=== PATIENT | female | born 1970 | race Caucasian/White ===

== ENCOUNTER 2017-02-13 11:21 | Inpatient (IN) | payer OTHER ==
[~2017-02-13] VITALS: Ht 149.9 cm; Wt 80.2 kg
[~2017-02-13 11:21] MED LIST: DOCU-144 PO; FER325 PO; HYD25 PO; LISI20TA11 PO; METF500T4 PO; PANT40TA4 PO
[2017-02-13] MEDS ORDERED: SOD CHLORIDE 0.9% 1,000 ML IV STA (11:31)
[2017-02-13] MEDS ORDERED: FAMOTIDINE 20 MG INJ IV STA (11:31)
[2017-02-13] MEDS ORDERED: LOSA50TA6 PO (11:43)
[2017-02-13 12:08] LABS: ADD SCAN DIFF NO
[2017-02-13 12:12] LABS: ABNORMAL IP MESSAGE 1; HEMATOCRIT 24.9 % (37.0-47.0); MEAN CORPUSCULAR HEMOGLOBIN 15.8 pg (29.0-33.0); MEAN CORPUSCULAR HGB CONC 25.3 g/dl (32.0-37.0); MEAN CORPUSCULAR VOLUME 62.4 fl (82.0-101.0); PLATELET COUNT 228 10^3/UL (140-415); RED BLOOD COUNT 3.99 10^6/ul (4.20-5.40); RED CELL DISTRIBUTION WIDTH 20.7 % (11.5-14.5); WHITE BLOOD COUNT 6.5 10^3/ul (4.8-10.8)
[2017-02-13] MEDS ORDERED: SOD CHLORIDE 0.9% 250 ML IV ONE (12:27)
[2017-02-13 12:28] LABS: RETICULOCYTE COUNT % 2.6 % (0.5-1.5)
[2017-02-13 12:33] LABS: ALANINE AMINOTRANSFERASE 26 IU/L (13-69); ALBUMIN 4.9 g/dl (3.3-4.9); ALBUMIN/GLOBULIN RATIO 1.75; ALKALINE PHOSPHATASE 89 IU/L (42-121); ANION GAP 15 (8-16); ASPARTATE AMINO TRANSFERASE 21 IU/L (15-46); BILIRUBIN,INDIRECT 0.4 mg/dl (0-1.1); BILIRUBIN,TOTAL 0.4 mg/dl (0.2-1.3); BLOOD UREA NITROGEN 9 mg/dl (7-20); CALCIUM 9.1 mg/dl (8.4-10.2); CARBON DIOXIDE 21 mmol/L (21-31); CHLORIDE 108 mmol/L (97-110); CREATININE 0.65 mg/dl (0.44-1.00); GLUCOSE 108 mg/dl (70-220); SODIUM 140 mmol/L (135-144); TOTAL PROTEIN 7.7 g/dl (6.1-8.1)
[2017-02-13 12:34] LABS: IRON 18 ug/dl (35-150)
[2017-02-13 12:43] LABS: TOTAL IRON BINDING CAPACITY 521 ug/dl (241-421); TROPONIN-I < 0.012 ng/ml (0.00-0.12)
[2017-02-13 13:08] LABS: ANISOCYTOSIS 1+; BASOPHIL # 0.1 10^3/ul (0.0-0.1); EOSINOPHILS # 0.1 10^3/ul (0.0-0.5); HYPOCHROMASIA 3+; LYMPHOCYTES # 1.5 10^3/ul (0.8-2.9); MICROCYTOSIS 3+; MONOCYTE # 0.2 10^3/ul (0.3-0.9); NEUTROPHIL # 4.6 10^3/ul (1.6-7.5); POLYCHROMASIA 1+
--- NOTE | 2017-02-13 13:23 | ERA ---
ER Documentation Chief Complaint Date/Time DATE: 02/13/17 TIME: 13:13 Chief Complaint send for low hgb, feels tired HPI 46-year-old female comes emergency room because her doctor called with a low hemoglobin level. She has been increasingly tired with generalized weakness and not wanting to perform any physical activities lately. She has had chest pain on and off for the last couple of weeks. She does not currently have the chest pain. She has no dark stools vaginal bleeding materia or blood in her stool. She has not vomited. Reviewed the patient's EMR: She was transfused for anemia in 2013 without any apparent source found is discharge summary documented microcytic anemia with a low B12 level which which should produce a macrocytic anemia. ROS All systems reviewed and are negative except as per history of present illness. Medications Home Meds Reported Medications Losartan Potassium* (Losartan Potassium*) 50 Mg Tablet, 50 MG PO DAILY, TAB 02/13/17 Pantoprazole* (Pantoprazole*) 40 Mg Tablet.dr, 40 MG PO AC BREAKFAST, TAB 06/14/16 Metformin* (Glucophage*) 500 Mg Tab, 500 MG PO DAILY, #30 TAB 12/22/15 Discontinued Reported Medications Lisinopril* (Lisinopril*) 20 Mg Tablet, 20 MG PO DAILY, #30 TAB 06/14/16 Hydrochlorothiazide* (Hydrochlorothiazide*) 25 Mg Tab, 25 MG PO DAILY, #30 TAB 06/14/16 Discontinued Scripts Docusate Sodium* (Colace*) 100 Mg Cap, 100 MG PO BID, #60 Prov:DARVIN GARG PSYCHOLOGIST DEVELOPMENTAL 06/13/14 Ferrous Sulfate* (Ferrous Sulfate*) 325 Mg Tabec, 325 MG PO TID, #90 Prov:DARVIN GARG PSYCHOLOGIST DEVELOPMENTAL 06/13/14 Allergies Allergies: Coded Allergies: No Known Allergy (Unverified , 02/13/17) PMhx/Soc History of Surgery: No Anesthesia Reaction: No Hx Neurological Disorder: No Hx Respiratory Disorders: No Hx Cardiac Disorders: Yes (HTN) Hx Psychiatric Problems: No Hx Miscellaneous Medical Probl: Yes (DM, ANEMIA) Hx Alcohol Use: Yes (OCCASIONALLY) Hx Substance Use: No Hx Tobacco Use: Yes (OCCASIONALLY) Smoking Status: Current some day smoker Physical Exam Vitals Vital Signs Date Time Temp Pulse Resp B/P Pulse Ox O2 Delivery O2 Flow Rate FiO2 6/7/17 19:45 72 16 147/76 99 02/13/17 18:30 73 16 137/69 100 02/13/17 16:30 76 17 146/80 100 02/13/17 14:49 79 18 146/88 99 02/13/17 12:14 77 18 132/81 99 02/13/17 11:37 77 18 179/93 99 02/13/17 11:24 99.2 82 18 191/86 99 Physical Exam Const: [] Mild distress, appears uncomfortable Head: Atraumatic Eyes: Normal Conjunctiva ENT: Normal External Ears, Nose and Mouth. Neck: Full range of motion..~ No meningismus. Resp: Clear to auscultation bilaterally Cardio: Regular rate and rhythm, no murmurs Abd: Soft, non tender, non distended. Normal bowel sounds Skin: No petechiae or rashes Back: No midline or flank tenderness Ext: No cyanosis, or edema Neur: Awake and alert and oriented 3, no focal deficits. Psych: Normal Mood and Affect Result Diagram: 02/13/17 1900 02/13/17 1155 Results 24 hrs Laboratory Tests Test 02/13/17 11:55 02/13/17 13:10 02/13/17 17:55 02/13/17 19:00 White Blood Count 6.510^3/ul Red Blood Count 3.9910^6/ul Hemoglobin 6.3g/dl 10.0g/dl Hematocrit 24.9% 33.8% Mean Corpuscular Volume 62.4fl Mean Corpuscular Hemoglobin 15.8pg Mean Corpuscular Hemoglobin Concent 25.3g/dl Red Cell Distribution Width 20.7% Platelet Count 88712^3/UL Mean Platelet Volume fl Neutrophils % 71.0% Lymphocytes % 23.0% Monocytes % 3.0% Eosinophils % 2.0% Basophils % 1.0% Neutrophils # 4.610^3/ul Lymphocytes # 1.510^3/ul Monocytes # 0.210^3/ul Eosinophils # 0.110^3/ul Basophils # 0.110^3/ul Polychromasia 1+ Hypochromasia 3+ Anisocytosis 1+ Microcytosis 3+ Absolute Reticulocyte Count 0.104X10^6 Percent Reticulocyte Count 2.6% Sodium Level 140mmol/L Potassium Level 4.0mmol/L Chloride Level 108mmol/L Carbon Dioxide Level 21mmol/L Anion Gap 15 Blood Urea Nitrogen 9mg/dl Creatinine 0.65mg/dl Glucose Level 108mg/dl Calcium Level 9.1mg/dl Iron Level 18ug/dl Total Iron Binding Capacity 521ug/dl Percent Iron Saturation 3% SAT Ferritin 3.3ng/ml Total Bilirubin 0.4mg/dl Direct Bilirubin 0.00mg/dl Indirect Bilirubin 0.4mg/dl Aspartate Amino Transf (AST/SGOT) 21IU/L Alanine Aminotransferase (ALT/SGPT) 26IU/L Alkaline Phosphatase 89IU/L Lactate Dehydrogenase 440IU/L Troponin I < 0.012ng/ml < 0.012ng/ml Total Protein 7.7g/dl Albumin 4.9g/dl Globulin 2.80g/dl Albumin/Globulin Ratio 1.75 Prothrombin Time 14.2Sec Prothrombin Time Ratio 1.1 INR International Normalized Ratio 1.00 Activated Partial Thromboplast Time 27.1Sec Bedside Glucose 102mg/dL Creatine Kinase 48IU/L Creatine Kinase Index 1.0 Creatinine Kinase MB (Mass) 0.47ng/ml Current Medications Medications (Trade) Dose Ordered Sig/Randi Route PRN Reason Start Time Stop Time Status Last Admin Dose Admin Sodium Chloride (NS) 1,000 ml @ 1,000 mls/hr Q1H STAT IV 02/13/17 11:31 02/13/17 12:30 DC 02/13/17 12:06 Famotidine 20 mg 20 mg ONCE STAT IV 02/13/17 11:31 02/13/17 11:32 DC 02/13/17 12:06 Sodium Chloride (NS) 250 ml @ 0 mls/hr Q0M ONCE IV 02/13/17 12:27 02/13/17 12:29 DC 02/13/17 13:30 Ondansetron HCl (Zofran Inj) 4 mg BRIDGE ORDER PRN IV NAUSEA AND/OR VOMITING 02/13/17 14:00 02/13/17 14:49 DC Acetaminophen (Tylenol Tab) 650 mg ER BRIDGE PRN PO MILD PAIN/FEVER 02/13/17 14:00 02/13/17 14:49 DC Losartan Potassium (Cozaar) 50 mg DAILY PO 02/14/17 09:00 Pantoprazole (Protonix Tab) 40 mg AC BREAKFAST PO 02/14/17 07:00 IV Flush (NS 3 ml) 3 ml PER PROTOCOL IV 02/13/17 14:30 Ondansetron HCl (Zofran Inj) 4 mg Q6H PRN IV NAUSEA AND/OR VOMITING 02/13/17 14:30 02/13/17 20:32 Acetaminophen (Tylenol Tab) 650 mg Q6H PRN PO PAIN LEVEL 1-3 OR FEVER 02/13/17 14:30 Acetaminophen (Tylenol Supp) 650 mg Q6H PRN [place] PAIN LEVEL 1-3 OR FEVER 02/13/17 14:30 Acetaminophen/ Hydrocodone Bitart ([place] (5/325)) 1 tab Q6H PRN PO MODERATE PAIN LEVEL 4-6 02/13/17 14:30 Acetaminophen/ Hydrocodone Bitart ([place] (5/325)) 2 tab Q6H PRN PO SEVERE PAIN LEVEL 7-10 02/13/17 14:30 Morphine Sulfate (morphine) 2 mg Q4H PRN IV SEVERE PAIN LEVEL 7-10 02/13/17 14:30 02/13/17 20:33 Docusate Sodium (Colace) 100 mg Q12H PRN PO CONSTIPATION 02/13/17 14:30 02/13/17 17:24 DC Magnesium Hydroxide (Milk Of Mag) 30 ml DAILY PRN PO CONSTIPATION 02/13/17 14:30 Bisacodyl (Dulcolax Supp) 10 mg DAILY PRN [place] CONSTIPATION 02/13/17 14:30 Insulin Aspart (Novolog Insulin Pen) NOVOLOG *MILD* ALGORITHM WITH MEALS BEDTIME SC 02/13/17 18:00 Miscellaneous Information (* Miscellaneous Pharmacy Order) HYPOGLYCEMIA PROTOCOL w... ONCE ONCE XX 02/13/17 14:30 02/13/17 14:50 DC Miscellaneous Information (* Miscellaneous Pharmacy Order) Discontinue Glyburide, Glipizide,... ONCE ONCE XX 02/13/17 14:30 02/13/17 14:50 DC Miscellaneous Information Discontinue all previ... ONCE ONCE XX 02/13/17 14:30 02/13/17 14:50 DC Ferric Sodium Gluconate Complex/ Sodium Chloride (Ferrlecit/NS) 110 ml @ 110 mls/hr Q24H IVPB 02/13/17 14:30 02/17/17 15:29 02/13/17 17:34 Miscellaneous Information 1 ea NOTE XX 02/13/17 15:00 Glucose (Glutose) 15 gm Q15M PRN PO DECREASED GLUCOSE 02/13/17 15:00 Glucose (Glutose) 22.5 gm Q15M PRN PO DECREASED GLUCOSE 02/13/17 15:00 Dextrose (D50w Syringe) 25 ml Q15M PRN IV DECREASED GLUCOSE 02/13/17 15:00 Dextrose (D50w Syringe) 50 ml Q15M PRN IV DECREASED GLUCOSE 02/13/17 15:00 Glucagon (Glucagen) 1 mg Q15M PRN IM DECREASED GLUCOSE 02/13/17 15:00 Glucose (Glutose) 15 gm Q15M PRN BUCCAL DECREASED GLUCOSE 02/13/17 15:00 Docusate Sodium (Colace) 200 mg BID PO 02/13/17 21:00 Senna (Senokot) 1 tab BID PO 02/13/17 21:00 Procedures/MDM Patient with currently unexplained symptomatic anemia. Her stable vital signs with a hemoglobin of 6 indicate this is prior chronic process. This is an iron deficiency anemia and the bone marrow is attempting to respond as evidenced by her reticulocyte count. Blood loss anemia would fit this pattern of the patient has no noticed GI bleed. I believe she needs to be admitted for further workup in order to possibly fix this problem. She was given Pepcid IV in emergency room. She is being transfused 3 units of packed red blood cells. He has had chest pain but no signs of cardiac ischemia on EKG or troponin level. Also has no abdominal pain whatsoever and CAT scan imaging is not indicated. EKG interpretation: Normal sinus rhythm rate of 76, normal axis, normal intervals, no ST or T-wave changes concerning for acute ischemia floorworker interpretation: Normal sinus rhythm without arrhythmia Departure Diagnosis: Primary Impression: Symptomatic anemia Additional Impression: Chest pain Condition: Stable EL MACARIO DO Feb 13, 2017 13:23
[2017-02-13] MEDS ORDERED: ACETAMINOPHEN 325 MG TAB PO PRN (14:00)
[2017-02-13] MEDS ORDERED: ONDANSETRON 4 MG INJ IV PRN ×2 (14:00→14:30)
[2017-02-13] MEDS ORDERED: HYDROCODONE/APAP (5/325) TAB PO PRN ×2 (14:30)
[2017-02-13] MEDS ORDERED: BISACODYL 10 MG SUPP PR PRN (14:30)
[2017-02-13] MEDS ORDERED: MAGNESIUM HYDROXIDE 30ML CUP PO PRN (14:30)
[2017-02-13] MEDS ORDERED: DOCUSATE SODIUM 100 MG CAP PO PRN (14:30)
[2017-02-13] MEDS ORDERED: morphine 2 MG INJ IV PRN (14:30)
[2017-02-13] MEDS ORDERED: NACL 0.9% 3 ML SYG IV SCH (14:30)
[2017-02-13] MEDS ORDERED: ACETAMINOPHEN 650 MG SUPP PR PRN (14:30)
[2017-02-13] MEDS ORDERED: GLUCOSE GEL 15 GRAM TUBE PO PRN ×2 (15:00)
[2017-02-13] MEDS ORDERED: DEXTROSE 50% 50 ML SYRINGE IV PRN ×2 (15:00)
[2017-02-13] MEDS ORDERED: GLUCAGON 1 MG INJ IM PRN (15:00)
[2017-02-13] MEDS ORDERED: GLUCOSE GEL 15 GRAM TUBE BUCCAL PRN (15:00)
[2017-02-13 16:35] LABS: PROTIME 14.2 Sec (12.2-14.2); PT RATIO 1.1
[2017-02-13 16:38] LABS: PARTIAL THROMBOPLASTIN TIME 27.1 Sec (25.0-35.0)
--- NOTE | 2017-02-13 17:04 | HP ---
Date/Time of Note Date/Time of Note DATE: 02/13/17 TIME: 16:57 Assessment/Plan VTE Prophylaxis VTE Prophylaxis Intervention: SCD's Assessment/Plan Chief Complaint/Hosp Course Assessment and plan 1. Anemia. Likely secondary to deficiency. Will follow up on occult stool. Patient denies any hemoptysis or hematochezia or hematemesis. Patient educated about compliance with iron supplement. Will provide with bowel regimen for constipation. Will monitor serial H&H. 2. Essential hypertension. Continue antihypertensives and adjust as needed 3. Diabetes.Follow-up on A1c. Continue on insulin regimen 4. Chest pain with shortness of breath likely secondary to anemia. Will rule out ACS. Follow-up on serial troponin and echocardiogram. 5. Obesity. Weight reduction is advised Admission process time is 40 minutes Discussed plan of care with Dr. Levin Problems: HPI/ROS Admit Date/Time Admit Date/Time Hx of Present Illness This is a 46-year-old female with history of diabetes as well as iron deficiency anemia, hypertension, GERD, who came to [facility] due to reports of increased weakness. According to patient she had been feeling weak for 1 month duration. She did state that she does have a history of iron deficiency and has been off her iron pills for 6 months due to reports of feeling constipated from the medication. She also has been reporting that for 1 month she has been having some achy pains on bilateral arms but no reported deficit. He goes to her doctor this morning for follow-up on her blood work was found to be severely anemic. She was brought to [facility] due to the aformentiond issues and she was found to have a hemoglobin of 6.3 and hematocrit 24.9. She was noted to be hypochromic microcytic anemia consistent with iron deficiency. Iron panel also showed her to be with high TIBC and low iron saturation. She denied any nausea or vomiting but did report having some shortness of breath on exertion as well as some chest pain likely due to her severe anemia. She denies any family history of coronary artery disease. Patient denies any further symptoms besides the aformentiond. We will admit the patient following issues ROS 12 point review of systems obtained and entirely negative except that mentioned in the history of present illness PMH/Family/Social Past Medical History Medical/surgical history 1. Hypertension 2. Diabetes 3.. GERD 4. Obesity Past Surgical History Past Surgical Hx: no surgical history Family History Significant Family History: no pertinent family hx Social History Alcohol Use: none Smoking Status: Former smoker Drug Use: none Exam/Review of Systems Vital Signs Vitals Vital Signs Date Time Temp Pulse Resp B/P Pulse Ox O2 Delivery O2 Flow Rate FiO2 02/13/17 14:49 79 18 146/88 99 02/13/17 11:24 99.2 Exam Constitutional: alert, oriented Psych: nl mood/affect Head: normocephalic Neck: supple, No jvd Respiratory: clear to auscultation, normal air movement Cardiovascular: regular rate and rhythm Gastrointestinal: soft Musculoskeletal: nl extremities to inspection, nl gait and stance Extremities: normal pulses Neurological: DIRECTIONAL SURVEY DRAFTER II-XII intact, nl mental status, nl speech Labs Result Diagram: 02/13/17 1155 02/13/17 1155 Medications Medications Current Medications Losartan Potassium (Cozaar) 50 mg DAILY PO ; Start 02/14/17 at 09:00 Ondansetron HCl (Zofran Inj) 4 mg Q6H PRN IV NAUSEA AND/OR VOMITING; Start 02/13 at 14:30 Acetaminophen (Tylenol Tab) 650 mg Q6H PRN PO PAIN LEVEL 1-3 OR FEVER; Start at 14:30 Acetaminophen (Tylenol Supp) 650 mg Q6H PRN [place] PAIN LEVEL 1-3 OR FEVER; Start 02/13/17 at 14:30 Acetaminophen/ Hydrocodone Bitart ([place] (5/325)) 1 tab Q6H PRN PO MODERATE PAIN LEVEL 4-6; Start 02/13/17 at 14:30 Acetaminophen/ Hydrocodone Bitart ([place] (5/325)) 2 tab Q6H PRN PO SEVERE PAIN LEVEL 7-10; Start 02/13/17 at 14:30 Morphine Sulfate (morphine) 2 mg Q4H PRN IV SEVERE PAIN LEVEL 7-10; Start at 14:30 Docusate Sodium (Colace) 100 mg Q12H PRN PO CONSTIPATION; Start 02/13/17 at 14: 30 Magnesium Hydroxide (Milk Of Mag) 30 ml DAILY PRN PO CONSTIPATION; Start at 14:30 Bisacodyl 10 mg 10 mg DAILY PRN [place] CONSTIPATION; Start 02/13/17 at 14:30 Ferric Sodium Gluconate Complex/ Sodium Chloride (Ferrlecit/NS) 110 ml @ 110 mls/hr Q24H IVPB ; Start 02/13/17 at 14:30; Stop 02/17/17 at 15:29 Miscellaneous Information 1 ea NOTE XX ; Start 02/13/17 at 15:00 Glucose (Glutose) 15 gm Q15M PRN PO DECREASED GLUCOSE; Start 02/13/17 at 15:00 Glucose (Glutose) 22.5 gm Q15M PRN PO DECREASED GLUCOSE; Start 02/13/17 at 15:00 Dextrose (D50w Syringe) 25 ml Q15M PRN IV DECREASED GLUCOSE; Start 02/13/17 at 15:00 Dextrose (D50w Syringe) 50 ml Q15M PRN IV DECREASED GLUCOSE; Start 02/13/17 at 15:00 Glucagon (Glucagen) 1 mg Q15M PRN IM DECREASED GLUCOSE; Start 02/13/17 at 15:00 Glucose (Glutose) 15 gm Q15M PRN BUCCAL DECREASED GLUCOSE; Start 02/13/17 at 15: 00 NIDIA PENN Feb 13, 2017 17:04
[2017-02-13] MEDS: SOD FERRIC GLUC COMPLX 125 MG in SOD CHLORIDE 0.9% 100 ML IVPB SCH (17:34)
[2017-02-13] MEDS ORDERED: INSULIN ASPART [NOVOLOG] 3 ML PEN SC SCH (18:00)
[2017-02-13 19:16] LABS: HEMATOCRIT 33.8 % (37.0-47.0)
[2017-02-13 19:45] LABS: CREATINE KINASE 48 IU/L (23-200)
[2017-02-13 19:57] LABS: CK-MB 0.47 ng/ml (0.0-2.4)
[2017-02-13 20:01] LABS: TROPONIN-I < 0.012 ng/ml (0.00-0.12)
[2017-02-13 21:45] VITALS: Ht 149.9 cm; Wt 80.2 kg
[2017-02-13 22:12] VITALS: BP 180/82; PULSE 68
[2017-02-13] MEDS: DOCUSATE SODIUM 100 MG CAP PO SCH (22:23)
[2017-02-13] MEDS: SENNA TAB PO SCH (22:23)
[2017-02-13] MEDS ORDERED: hydrALAzine 20 MG INJ IV PRN (22:30)
[2017-02-13 22:43] VITALS: BP 194/91; RESP 18
[2017-02-13 23:42] VITALS: BP 168/80; PULSE 74
[2017-02-13] MEDS: Insulin NOVOLOG SS MILD Algorithm (NPO/TPN/ENTERAL FEEDS) SC SCH (23:42)
[2017-02-14] MEDS ORDERED: morphine 4 MG/ML VIAL IV PRN
[2017-02-14 00:03] LABS: CREATINE KINASE 49 IU/L (23-200)
[2017-02-14] MEDS: ACETAMINOPHEN 325 MG TAB PO PRN ×2 (00:13→08:51)
[2017-02-14 00:16] LABS: CK-MB 0.54 ng/ml (0.0-2.4)
[2017-02-14 00:17] LABS: TROPONIN-I < 0.012 ng/ml (0.00-0.12)
[2017-02-14 02:58] LABS: HEMATOCRIT 31.3 % (37.0-47.0); HEMOGLOBIN 9.1 g/dl (12.0-16.0)
[2017-02-14 04:20] VITALS: BP 125/68; PULSE 66
[2017-02-14] MEDS: Insulin NOVOLOG SS MILD Algorithm (NPO/TPN/ENTERAL FEEDS) SC SCH ×3 (06:00→18:44)
[2017-02-14 06:38] LABS: T3 UPTAKE 32.8 % (23.5-40.5)
[2017-02-14 06:51] LABS: THYROID STIMULATING HORMONE 3.83 MIU/L (0.465-4.680)
[2017-02-14 06:58] LABS: ALBUMIN 3.9 g/dl (3.3-4.9); ALBUMIN/GLOBULIN RATIO 1.62; BILIRUBIN,INDIRECT 0.5 mg/dl (0-1.1); BILIRUBIN,TOTAL 0.5 mg/dl (0.2-1.3); CALCIUM 9.1 mg/dl (8.4-10.2); CHOL/HDL RATIO 3.9 RATIO; CREATININE 0.66 mg/dl (0.44-1.00); PHOSPHORUS 4.1 mg/dl (2.5-4.9); POTASSIUM 4.1 mmol/L (3.5-5.1); TOTAL PROTEIN 6.3 g/dl (6.1-8.1)
[2017-02-14 08:17] VITALS: BP 140/76; RESP 18
[2017-02-14] MEDS: PANTOPRAZOLE (EC) 40 MG TAB PO SCH (08:50)
[2017-02-14] MEDS: SENNA TAB PO SCH ×2 (08:51→20:36)
[2017-02-14] MEDS: DOCUSATE SODIUM 100 MG CAP PO SCH ×2 (08:51→20:36)
[2017-02-14] MEDS: LOSARTAN 50 MG TAB PO SCH (08:51)
--- NOTE | 2017-02-14 09:34 | PDOCDIS ---
Discharge Instructions DIAGNOSIS Discharge Diagnosis: 1. severe iron deficiency anemia 2. hypertension 3. obesity CONDITION Patient Condition: Stable HOME CARE INSTRUCTIONS: Special Diet: NPO FOLLOW UP/APPOINTMENTS Appointments 1. Follow up with your primary care provider in one week NIDIA PENN Feb 14, 2017 09:34
[2017-02-14] MEDS ORDERED: DOCU-216 PO (09:38)
[2017-02-14] MEDS ORDERED: FER325 PO (09:38)
[2017-02-14] MEDS ORDERED: SENN-53 PO (09:38)
[2017-02-14] MEDS ORDERED: ATOR20TA38 PO (09:43)
[2017-02-14 10:23] LABS: HEMATOCRIT 31.9 % (37.0-47.0); HEMOGLOBIN 9.4 g/dl (12.0-16.0)
--- NOTE | 2017-02-14 10:30 | PN ---
Date/Time of Note Date/Time of Note DATE: 02/14/17 TIME: 10:18 Assessment/Plan VTE Prophylaxis VTE Prophylaxis Intervention: SCD's Lines/Catheters IV Catheter Type (from Nrs): Saline Lock Assessment/Plan Chief Complaint/Hosp Course Assessment and plan 1. Anemia. Likely secondary to deficiency. continue with iron supplement. Patient s/p prbc transfusion. monitor for trend stability. 2. Essential hypertension. Continue antihypertensives and adjust as needed 3. Diabetes.a1c was noted at 5.5. will monitor for now. 4. Chest pain with shortness of breath likely secondary to anemia. serial troponin negative. echo is pending 5. Obesity. Weight reduction is advised 6.bilateral arm pain. etiology unknown. follow up ultrasound BUE DISPO/PLAN: follow up ultrasound BUE . monitor H&H trend . if stable, anticipate d/c within the next 24 hours Discussed plan of care with Dr. Levin Problems: Subjective 24 Hr Interval Summary Free Text/Dictation reports pain BUE Exam/Review of Systems Vital Signs Vitals Vital Signs Date Time Temp Pulse Resp B/P Pulse Ox O2 Delivery O2 Flow Rate FiO2 02/14/17 08:17 98.4 70 18 140/76 98 02/13/17 21:15 Room Air Exam Constitutional: alert, oriented Psych: nl mood/affect Head: normocephalic Neck: supple, No jvd Respiratory: clear to auscultation Cardiovascular: regular rate and rhythm Gastrointestinal: non-tender, soft Musculoskeletal: nl extremities to inspection Extremities: normal pulses Neurological: VETERINARY TECHNOLOGIST II-XII intact, nl mental status, nl speech Skin: nl turgor Results Result Diagram: 02/14/17 0244 02/14/17 0500 Results 24 hrs Laboratory Tests Test 02/13/17 11:55 02/13/17 13:10 02/13/17 17:55 02/13/17 19:00 White Blood Count 6.5 # Red Blood Count 3.99 L Hemoglobin 6.3 #*L 10.0 #L Hematocrit 24.9 L 33.8 #L Mean Corpuscular Volume 62.4 L Mean Corpuscular Hemoglobin 15.8 #L Mean Corpuscular Hemoglobin Concent 25.3 L Red Cell Distribution Width 20.7 #H Platelet Count 228 Mean Platelet Volume Neutrophils % 71.0 Lymphocytes % 23.0 Monocytes % 3.0 Eosinophils % 2.0 Basophils % 1.0 Neutrophils # 4.6 Lymphocytes # 1.5 Monocytes # 0.2 L Eosinophils # 0.1 Basophils # 0.1 Polychromasia 1+ Hypochromasia 3+ Anisocytosis 1+ Microcytosis 3+ Absolute Reticulocyte Count 0.104 Percent Reticulocyte Count 2.6 H Sodium Level 140 Potassium Level 4.0 Chloride Level 108 Carbon Dioxide Level 21 Anion Gap 15 Blood Urea Nitrogen 9 Creatinine 0.65 Glucose Level 108 Calcium Level 9.1 Iron Level 18 L Total Iron Binding Capacity 521 H Percent Iron Saturation 3 L Ferritin 3.3 L Total Bilirubin 0.4 Direct Bilirubin 0.00 Indirect Bilirubin 0.4 Aspartate Amino Transf (AST/SGOT) 21 Alanine Aminotransferase (ALT/SGPT) 26 Alkaline Phosphatase 89 Lactate Dehydrogenase 440 Troponin I < 0.012 < 0.012 Total Protein 7.7 Albumin 4.9 Globulin 2.80 Albumin/Globulin Ratio 1.75 Prothrombin Time 14.2 Prothrombin Time Ratio 1.1 INR International Normalized Ratio 1.00 Activated Partial Thromboplast Time 27.1 Bedside Glucose 102 Creatine Kinase 48 Creatine Kinase Index 1.0 Creatinine Kinase MB (Mass) 0.47 Test 02/13/17 23:35 02/13/17 23:36 02/14/17 02:44 02/14/17 05:00 Creatine Kinase 49 Creatine Kinase Index 1.1 Creatinine Kinase MB (Mass) 0.54 Troponin I < 0.012 Bedside Glucose 101 Hemoglobin 9.1 L Hematocrit 31.3 L Sodium Level 142 Potassium Level 4.1 Chloride Level 109 Carbon Dioxide Level 23 Anion Gap 14 Blood Urea Nitrogen 8 Creatinine 0.66 Glucose Level 113 Hemoglobin A1c 5.5 Calcium Level 9.1 Phosphorus Level 4.1 Magnesium Level 2.0 Total Bilirubin 0.5 Direct Bilirubin 0.00 Indirect Bilirubin 0.5 Aspartate Amino Transf (AST/SGOT) 21 Alanine Aminotransferase (ALT/SGPT) 22 Alkaline Phosphatase 73 Total Protein 6.3 # Albumin 3.9 # Globulin 2.40 Albumin/Globulin Ratio 1.62 Triglycerides Level 192 H Cholesterol Level 122 LDL Cholesterol, Calculated 53 HDL Cholesterol 31 L Cholesterol/HDL Ratio 3.9 Thyroid Stimulating Hormone (TSH) 3.830 Free Thyroxine Index 3.48 Thyroxine (T4) 10.6 Triiodothyronine (T3) Uptake 32.8 Test 02/14/17 06:10 02/14/17 06:41 Bedside Glucose 123 Lab Scanned Report BLOOD TRANSFUSION Medications Medications Current Medications Losartan Potassium (Cozaar) 50 mg DAILY PO Last administered on 02/14/17 08:51 ; Admin Dose 50 MG; Start 02/14/17 at 09:00 Ondansetron HCl (Zofran Inj) 4 mg Q6H PRN IV NAUSEA AND/OR VOMITING Last administered on 02/13/17 20:32; Admin Dose 4 MG; Start 02/13/17 at 14:30 Acetaminophen (Tylenol Tab) 650 mg Q6H PRN PO PAIN LEVEL 1-3 OR FEVER Last administered on 02/14/17 08:51; Admin Dose 650 MG; Start 02/13/17 at 14:30 Acetaminophen (Tylenol Supp) 650 mg Q6H PRN [place] PAIN LEVEL 1-3 OR FEVER; Start 02/13/17 at 14:30 Acetaminophen/ Hydrocodone Bitart ([place] (5/325)) 1 tab Q6H PRN PO MODERATE PAIN LEVEL 4-6; Start 02/13/17 at 14:30 Acetaminophen/ Hydrocodone Bitart ([place] (5/325)) 2 tab Q6H PRN PO SEVERE PAIN LEVEL 7-10; Start 02/13/17 at 14:30 Magnesium Hydroxide (Milk Of Mag) 30 ml DAILY PRN PO CONSTIPATION; Start at 14:30 Bisacodyl 10 mg 10 mg DAILY PRN [place] CONSTIPATION; Start 02/13/17 at 14:30 Ferric Sodium Gluconate Complex/ Sodium Chloride (Ferrlecit/NS) 110 ml @ 110 mls/hr Q24H IVPB Last administered on 02/13/17 17:34; Admin Dose 110 MLS/HR; Start 02/13/17 at 14:30; Stop 02/17/17 at 15:29 Miscellaneous Information 1 ea NOTE XX ; Start 02/13/17 at 15:00 Glucose (Glutose) 15 gm Q15M PRN PO DECREASED GLUCOSE; Start 02/13/17 at 15:00 Glucose (Glutose) 22.5 gm Q15M PRN PO DECREASED GLUCOSE; Start 02/13/17 at 15:00 Dextrose (D50w Syringe) 25 ml Q15M PRN IV DECREASED GLUCOSE; Start 02/13/17 at 15:00 Dextrose (D50w Syringe) 50 ml Q15M PRN IV DECREASED GLUCOSE; Start 02/13/17 at 15:00 Glucagon (Glucagen) 1 mg Q15M PRN IM DECREASED GLUCOSE; Start 02/13/17 at 15:00 Glucose (Glutose) 15 gm Q15M PRN BUCCAL DECREASED GLUCOSE; Start 02/13/17 at 15: 00 Docusate Sodium (Colace) 200 mg BID PO Last administered on 02/14/17 08:51; Admin Dose 200 MG; Start 02/13/17 at 21:00 Senna (Senokot) 1 tab BID PO Last administered on 02/14/17 08:51; Admin Dose 1 TAB; Start 02/13/17 at 21:00 Hydralazine HCl (Apresoline) 10 mg Q4H PRN IV SBP > 160 Last administered on 22:47; Admin Dose 10 MG; Start 02/13/17 at 22:30 Insulin Aspart (Novolog Insulin Pen) (Adult SC Insulin - Mild Algorithm)... Q6 SC ; Start 02/14/17 at 00:00 Morphine Sulfate (morphine) 4 mg Q4H PRN IV SEVERE PAIN LEVEL 7-10 Last administered on 02/14/17 00:13; Admin Dose 4 MG; Start 02/14/17 at 00:00 NIDIA PENN Feb 14, 2017 10:30
--- NOTE | 2017-02-14 11:49 | RADRPT ---
PROCEDURE: US upper extremity Venous. CLINICAL INDICATION: Bilateral arm edema and pain TECHNIQUE: Multiple sonographic images of the bilateral upper extremity venous system was obtained utilizing grayscale, color-flow, compressive sonography and doppler imaging with augmentation. The images were reviewed on a PACS workstation. COMPARISON: None. FINDINGS: There is normal compressibility and flow within the bilateral internal jugular vein, subclavian vein , axillary vein, brachial, basilic, cephalic, radial and ulnar veins. RPTAT: AA IMPRESSION: No sonographic evidence for venous thrombosis. .Capo Tineo MD, MD Date Time Electronically viewed and signed by .Capo Tineo MD, MD on 02/14/2017 11:49 .S/
[2017-02-14 14:36] LABS: HEMATOCRIT 32.8 % (37.0-47.0); HEMOGLOBIN 9.6 g/dl (12.0-16.0)
[2017-02-14] MEDS: SOD FERRIC GLUC COMPLX 125 MG in SOD CHLORIDE 0.9% 100 ML IVPB SCH (15:05)
--- NOTE | 2017-02-14 19:58 | RADRPT ---
Echocardiogram Report Patient Name: CHAYO LARA Gender: Female Date: 1970 Study Date: 14-Feb-2017 Manager Call Center: [facility] Location: 2247 Ref. Physician: NIDIA PENN Quality: Good Procedures: Transthoracic echocardiogram with complete 2D, M-Mode, and doppler examination. Indications: Chest Pain. 2D/M Mode Doppler Measurement Value Normal Ranges Measurement Value Normal Ranges LVIDd 2D 5.1 3.5 - 5.6 cm AV Peak Robert 1.7 m/sec LVIDs 2D 3.6 2.1 - 4.1 cm AV Peak PG 10.9 mmHg LVPWd 2D 1.0 0.6 - 1.1 cm LVOT Peak Robert 1.2 m/sec IVSd 2D 1.3 0.6 - 1.1 cm LVOT Peak PG 5.7 mmHg AoR Diam 2D 2.6 2.0 - 3.7 cm MV E Peak Robert 1.1 m/sec EDV 2D 121.8 cm3 MV A Peak Robert 0.9 m/sec ESV 2D 45.6 cm3 MV E/A 1.2 LA Dimen 2D 3.9 2.3 - 4.0 cm MV Decel Time 268 msec MV Decel [place] 4 MV E/A 1.2 TR Peak Robert 2.2 m/sec TR Peak PG 19.6 mmHg RVSP 23.0 mmHg Findings Left Ventricle: Normal left ventricular systolic function. Normal left ventricular cavity size. Mild concentric left ventricular hypertrophy. Ejection fraction is visually estimated at 5560 %. Tissue Doppler/Mitral Doppler indices are within normal limits. Right Ventricle: Normal right ventricular size. Normal right ventricular systolic function. Left Atrium: The left atrium is normal in size. Right Atrium: The right atrium is normal in size. Mitral Valve: Normal appearance and function of the mitral valve with trace physiologic regurgitation. Aortic Valve: Normal appearance of the aortic valve. No significant aortic stenosis or insufficiency. Tricuspid Valve: Normal appearance of the tricuspid valve. Estimated peak PA systolic pressure 23 mmHg. There is trace tricuspid regurgitation. Pulmonic Valve: Normal pulmonic valve appearance. Pericardium: Normal pericardium with no significant pericardial effusion. Aorta: Normal aortic root. IVC: Normal size and normal respiratory collapse consistent with normal right atrial pressure. Conclusions 1.Normal left ventricular systolic function. Normal left ventricular cavity size. Mild concentric left ventricular hypertrophy. Ejection fraction is visually estimated at 55-60 %. Tissue Doppler/Mitral Doppler indices are within normal limits. 2.Normal appearance and function of the mitral valve with trace physiologic regurgitation. 3.Normal appearance of the tricuspid valve. Estimated peak PA systolic pressure 23 mmHg. There is trace tricuspid regurgitation. Electronically Signed By: Hector Pemberton 14-Feb-2017 19:57:35 -0700 Patient Name: CHAYO LARA Study Date: 14-Feb-2017 [id number]
[2017-02-14 20:25] VITALS: BP 102/55; RESP 18
[2017-02-14 20:29] LABS: HEMATOCRIT 34.6 % (37.0-47.0); HEMOGLOBIN 10.2 g/dl (12.0-16.0)
[2017-02-14] MEDS: Insulin NOVOLOG SS MILD Algorithm (SS with meals and bedtime) SC SCH (20:45)
[2017-02-14] MEDS ORDERED: INSULIN ASPART [NOVOLOG] 3 ML PEN SC SCH ×2 (21:00)
[2017-02-15 06:59] LABS: HEMOGLOBIN 6.3 g/dl (12.0-16.0)
[2017-02-15] MEDS: Insulin NOVOLOG SS MILD Algorithm (SS with meals and bedtime) SC SCH ×2 (07:30→11:24)
[2017-02-15 07:45] VITALS: BP 136/68; RESP 18
[2017-02-15] MEDS: PANTOPRAZOLE (EC) 40 MG TAB PO SCH (08:19)
[2017-02-15] MEDS: SENNA TAB PO SCH (08:19)
[2017-02-15] MEDS: DOCUSATE SODIUM 100 MG CAP PO SCH (08:19)
[2017-02-15] MEDS: ACETAMINOPHEN 325 MG TAB PO PRN (08:20)
[2017-02-15] MEDS: LOSARTAN 50 MG TAB PO SCH (08:20)
[2017-02-15] MEDS ORDERED: FIORICET PO (10:27)
[2017-02-15] MEDS ORDERED: ACET/BUTAL/CAFF TAB PO ONE (10:30)
--- NOTE | 2017-02-15 16:26 | DS ---
Date/Time of Note Date/Time of Note DATE: 02/15/17 TIME: 16:23 Discharge Summary Admission/Discharge Info Admit Date/Time Feb 13, 2017 at 13:37 Discharge Date/Time Feb 15, 2017 at 14:11 Final Diagnosis 1. Anemia. Likely secondary to deficiency. c 2. Essential hypertension. 3. Diabetes.a1c was noted at 5.5. 4. Chest pain with shortness of breath likely secondary to anemia. 5. Obesity. Patient Condition: Stable Hx of Present Illness This is a 46-year-old female with history of diabetes as well as iron deficiency anemia, hypertension, GERD, who came to [facility] due to reports of increased weakness. According to patient she had been feeling weak for 1 month duration. She did state that she does have a history of iron deficiency and has been off her iron pills for 6 months due to reports of feeling constipated from the medication. She also has been reporting that for 1 month she has been having some achy pains on bilateral arms but no reported deficit. He goes to her doctor this morning for follow-up on her blood work was found to be severely anemic. She was brought to [facility] due to the aformentiond issues and she was found to have a hemoglobin of 6.3 and hematocrit 24.9. She was noted to be hypochromic microcytic anemia consistent with iron deficiency. Iron panel also showed her to be with high TIBC and low iron saturation. She denied any nausea or vomiting but did report having some shortness of breath on exertion as well as some chest pain likely due to her severe anemia. She denies any family history of coronary artery disease. Patient denies any further symptoms besides the aformentiond. We will admit the patient following issues Hospital Course This is a 46-year-old female with history of diabetes and iron deficiency anemia , hypertension, GERD, who came developed [facility] due to reports of generalized weakness for 1 month duration. Patient does have a history of iron deficiency anemia but been off her medications for 6 months. She did go to her primary care provider and was found to be severely anemic and as such did go to [facility] for further evaluation. Upon examination she had hemoglobin of 3 and hematocrit of 24.9. She was found to be also severely iron deficient. She was transfused PRBC with good response and she was provided with iron supplement. Patient was educated about importance of medical compliance. During the course of stay she did improve. She did report some bilateral arm pain but this did resolve status post blood transfusion and her anemia stabilized. She was otherwise optimized medically. She is continued on antihypertensives for her hypertension and of note she was reported to be diabetic and her A1c was 5.5. She did initially have some chest pain and this is likely secondary to her anemia. This did resolve status post transfusion. She was also noted to be obese and she was educated about lifestyle modifications. During the course of stay she did improve. The plan of care was discussed with the patient and patient did verbalize her understanding. On the day of discharge patient was in stable condition Discussed plan of care with Dr. Levin Discharge process 40 minutes Home Meds Active Scripts Acetamin/Butalbital/Caffeine* (Fioricet*) [id number] Tab, 2 TAB PO Q4H Y for PAIN LEVEL 6-10, #30 TAB Prov:NIDIA EPNN 02/15/17 Atorvastatin Calcium* (Atorvastatin Calcium*) 20 Mg Tablet, 20 MG PO QHS, #30 TAB Prov:REGIDONIDIA Beckford 02/14/17 Ferrous Sulfate* (Ferrous Sulfate*) 325 Mg Tabec, 325 MG PO BID for 90 Days, TAB Prov:NIDIA PENN 02/14/17 Sennosides* (Senna Lax*) 8.6 Mg Tablet, 1 TAB PO BID for 30 Days, TAB Prov:REGNIDIA HOUGH 02/14/17 Docusate Sodium (Dok) 100 Mg Capsule, 200 MG PO BID for 30 Days, CAP Prov:NIDIA PENN 02/14/17 Reported Medications Losartan Potassium* (Losartan Potassium*) 50 Mg Tablet, 50 MG PO DAILY, TAB 02/13/17 Pantoprazole* (Pantoprazole*) 40 Mg Tablet.dr, 40 MG PO AC BREAKFAST, TAB 06/14/16 Discontinued Reported Medications Metformin* (Glucophage*) 500 Mg Tab, 500 MG PO DAILY, #30 TAB 12/22/15 Lisinopril* (Lisinopril*) 20 Mg Tablet, 20 MG PO DAILY, #30 TAB 06/14/16 Hydrochlorothiazide* (Hydrochlorothiazide*) 25 Mg Tab, 25 MG PO DAILY, #30 TAB 06/14/16 Discontinued Scripts Docusate Sodium* (Colace*) 100 Mg Cap, 100 MG PO BID, #60 Prov:DARVIN GARG REDUCTION FURNACE OPERATOR HELPER 06/13/14 Ferrous Sulfate* (Ferrous Sulfate*) 325 Mg Tabec, 325 MG PO TID, #90 Prov:DARVIN GARG REDUCTION FURNACE OPERATOR HELPER 06/13/14 Follow-up Plan CONDITION Patient Condition: Stable HOME CARE INSTRUCTIONS: Special Diet: NPO FOLLOW UP/APPOINTMENTS Appointments 1. Follow up with your primary care provider in one week Primary Care Provider Not On Staff Doctor Pending Labs Laboratory Tests Test 02/14/17 17:54 02/14/17 20:04 02/14/17 20:38 02/15/17 00:04 Bedside Glucose 165mg/dL (70-220) 129mg/dL (70-220) Hemoglobin 10.2g/dl (12.0-16.0) Hematocrit 34.6% (37.0-47.0) Stool Occult Blood NEGATIVE (NEGATIVE) Test 02/15/17 08:18 02/15/17 11:24 Bedside Glucose 119mg/dL (70-220) 114mg/dL (70-220) NIDIA PENN Feb 15, 2017 16:26
--- NOTE | 2017-02-19 20:05 | DS ---
DATE OF ADMISSION: 02/13/2017 DATE OF DISCHARGE: 02/15/2017 DISCHARGE DIAGNOSES: 1. Anemia secondary to iron deficiency. 2. Essential hypertension. 3. History of diabetes. 4. Chest pain, likely secondary to her anemia. 5. Obesity. HOSPITAL COURSE: DICTATION ENDS HERE Dictated By: NIDIA EPNN NITRATOR OPERATOR for MANA LOW/MICKY Conf#: [id number] DID#: [id number]
== END 2017-02-15 14:11 | disposition home or self-care (01) | DRG 812 ==
LOC: E/R 11:21 → PP2 13:37
PROVIDERS: ADMIT Internal Medicine; ATTEND Internal Medicine
PROC: 30233N1 Transfusion of Nonautologous Red Blood Cells into Peripheral Vein, Percutaneous Approach (ICD-10-PCS; principal; 2017-02-13)
DX: D50.9 Iron deficiency anemia, unspecified (principal); I10 Essential (primary) hypertension; R07.9 Chest pain, unspecified; R06.02 Shortness of breath; K21.9 Gastro-esophageal reflux disease without esophagitis; E11.9 Type 2 diabetes mellitus without complications; E66.9 Obesity, unspecified; M79.602 Pain in left arm; M79.601 Pain in right arm; Z68.35 Body mass index [BMI] 35.0-35.9, adult
CPT/HCPCS: 36415; 36430; 80053; 80061; 82270; 82550; 82553; 82728; 82962; 83036; 83540; 83615; 83735; 84100; 84436; 84443; 84466; 84479; 84484; 85014; 85018; 85025; 85045; 85610; 85730; 86850; 86900; 86901; 86920; 93005; 93306; 93970; 96374; 96375; J0360; J1815; J2270; J2405; J2916; J7030; J7040; P9016

== ENCOUNTER 2017-10-10 05:55 | Day surgery (SDC) | END 2017-10-10 11:03 | disposition home or self-care (01) ==

== ENCOUNTER 2017-11-20 21:08 | Emergency (ER) | END 2017-11-21 04:56 | disposition home or self-care (01) ==